=== PATIENT | female | born 1940 | race Caucasian/White ===

== ENCOUNTER 2017-06-10 20:52 | Inpatient (IN) | payer MEDICARE, OTHER ==
[~2017-06-10] VITALS: Ht 160 cm; Wt 89.8 kg
[2017-06-10] MEDS ORDERED: AMIO200T2 PO (22:02)
[2017-06-10] MEDS ORDERED: DOXA4TAB3 PO (22:02)
[2017-06-10] MEDS ORDERED: RANI150T8 PO (22:02)
[2017-06-10] MEDS ORDERED: FURO40TA5 PO (22:02)
[2017-06-10] MEDS ORDERED: RIVA20TA PO (22:02)
[2017-06-10] MEDS ORDERED: PRIM50TA PO (22:02)
[2017-06-10] MEDS ORDERED: NATE60TA4 PO (22:02)
[2017-06-10] MEDS ORDERED: AZIL1TAB2 PO (22:02)
[2017-06-10] MEDS ORDERED: SIMV40TA5 PO (22:02)
[2017-06-10] MEDS ORDERED: ZOLP10TA6 PO (22:02)
[2017-06-10] MEDS ORDERED: CARB1TAB19 PO (22:02)
[2017-06-10 22:05] LABS: BASOPHILS % (AUTO) 0.6 % (0.0-2.0); EOSINOPHILS # (AUTO) 0.1 K/uL (0.0-0.7); EOSINOPHILS % (AUTO) 1.8 % (0.0-7.0); HEMATOCRIT 29.4 % (31.2-41.9); HEMOGLOBIN 9.7 g/dL (10.9-14.3); LYMPHOCYTES # (AUTO) 1.3 K/uL (20.0-40.0); LYMPHOCYTES % (AUTO) 22.3 % (20.5-51.5); MEAN CORPUSCULAR HEMOGLOBIN 28.6 uug (24.7-32.8); MEAN CORPUSCULAR HGB CONC 33 g/dL (32.3-35.6); MEAN CORPUSCULAR VOLUME 86.6 fL (75.5-95.3); MONOCYTES # (AUTO) 0.5 K/uL (2.0-10.0); MONOCYTES % (AUTO) 8.7 % (0.0-11.0); NEUTROPHILS % (AUTO) 66.6 % (38.5-71.5); PLATELET COUNT (AUTO) 151 K/uL (179-408); WHITE BLOOD COUNT (AUTO) 6.1 K/uL (3.8-11.8)
[2017-06-10 22:27] LABS: CARBON DIOXIDE 30 mmol/L (21-32); CHLORIDE 107 mmol/L (98-107); GLUCOSE 116 mg/dL (74-106); POTASSIUM 4.3 mmol/L (3.5-5.1); UREA NITROGEN, BLOOD 26 mg/dL (7-18)
[2017-06-10 22:31] LABS: ALANINE AMINOTRANSFERASE 23 U/L (14-59); ALKALINE PHOSPHATASE 68 U/L (50-136); ASPARTATE AMINOTRANSFERASE 24 U/L (15-37); BILIRUBIN,DIRECT 0.1 mg/dL (0.0-0.2); BILIRUBIN,TOTAL 0.3 mg/dL (0.2-1.0); TOTAL PROTEIN, SERUM 7.2 g/dL (6.4-8.2)
--- NOTE | 2017-06-10 22:40 | NUR ---
PT IN BED. PT'S DAUGHTER AT BEDSIDE. BREATH SOUNDS EVEN AND UNLABORED. VSS. NO SIGNS OF DISTRESS WITNESSED BY NURSE OR EXPRESSED BY PT.
[2017-06-11 01:38] LABS: *BILIRUBIN,URIN NEGATIVE (NEGATIVE); *BLOOD, URINE Trace-intact (NEGATIVE); *CLARITY,URINE SLIGHTLY CLOUDY (CLEAR); *COLOR,URINE YELLOW (YELLOW); *KETONES,URINE NEGATIVE (NEGATIVE); *PROTEIN,URINE NEGATIVE (NEGATIVE); LEUKOCYTE ESTERASE ,URINE NEGATIVE (NEGATIVE); NITRITE, URINE NEGATIVE (NEGATIVE); PH,URINE 7.5 (5.0-8.0); UGLUCOSE NEGATIVE (NEGATIVE)
[2017-06-11 02:02] LABS: BACTERIA,URINE NONE SEEN /HPF (NONE SEEN); SQUAMOUS EPITHELIAL CELL,UR MODERATE /HPF (NONE SEEN); WBC,URINE 0-3 /HPF (0-3)
[2017-06-11] MEDS ORDERED: ACETAMINOPHEN 325 MG TABLET PO PRN (02:30)
[2017-06-11] MEDS ORDERED: MAGNESIUM HYDROXIDE 30 ML LIQUID UDC PO PRN (02:30)
[2017-06-11] MEDS ORDERED: Z GUARD REMEDY PASTE 57 GM TUBE TOP PRN (02:30)
[2017-06-11] MEDS ORDERED: ONDANSETRON 4 MG/2 ML VIAL IV PRN (02:30)
--- NOTE | 2017-06-11 02:30 | NUR ---
REPORT GIVEN TO DIEGO KING
[2017-06-11] MEDS ORDERED: ALBUTEROL SULFATE 2.5 MG/ 0.5 ML NEBU NEB PRN (02:45)
[2017-06-11] MEDS ORDERED: DEXTROSE 50% 50 ML DISP.SYRIN IV PRN (02:45)
[2017-06-11] MEDS ORDERED: hydrALAZINE HCL 25 MG TABLET PO PRN (02:45)
[2017-06-11 04:00] VITALS: BP 122/68
--- NOTE | 2017-06-11 04:15 | NUR ---
Pt. admitted to TELEMETRY, under care of Dr. BURGOS Belongs List completed
[2017-06-11] MEDS: CARBIDOPA/LEVODOPA 10-100MG TABLET PO SCH ×4 (05:00→17:01)
[2017-06-11] MEDS: SIMVASTATIN 40 MG TABLET PO SCH ×2 (05:00→20:57)
[2017-06-11] MEDS: PRIMIDONE 50 MG TABLET PO SCH ×2 (05:00→20:57)
[2017-06-11] MEDS: IV NS 1000 ML 1,000 ML IV PRN (05:03)
--- NOTE | 2017-06-11 07:00 | NUR ---
ADMITTED PT FROM ER TRANSLATION GIVEN BY RHONDA MARISCAL, PT WITH CHRONIC BACK PAIN AND LEG PAIN. WHEELCHAIR BOUND FROM HOME,SKIN INTACT EXCEPT A 0.5CM SLIT ON HER RIGHT GROIN,. NO DRAINAGE NOTED, SINUS RHYTHM BUT SOMETIMES GOES A-V PACED ON MONITOR, VSS,AFEBRILE, IVF STARTED. WILL CONTINUE TO MONITOR, DIAPER IN PLACE.
[2017-06-11] MEDS: BLOOD SUGAR DIAGNOSTIC 1 EACH STRIP VI SCH ×4 (07:08→20:57)
--- NOTE | 2017-06-11 08:00 | NUR ---
AWAKE ALERT, SYRIAN SPEAKING, REQUIRES MAXIMUM ASSIST WITH ADLS. SEVERE WEAKNESS NOTED BLE. CONTINUE WITH TELE OBSERVATION. SR ON MONITOR
[2017-06-11] MEDS: AMIODARONE HCL 200 MG TABLET PO SCH (08:31)
[2017-06-11] MEDS: FAMOTIDINE 20 MG TABLET PO SCH ×2 (08:31→20:57)
[2017-06-11] MEDS: DOXAZOSIN 2 MG TABLET PO SCH ×2 (08:31→17:01)
[2017-06-11] MEDS: FUROSEMIDE 40 MG TABLET PO SCH (08:31)
[2017-06-11] MEDS: Z GUARD REMEDY PASTE 57 GM TUBE TOP SCH ×2 (08:34→20:59)
[2017-06-11] MEDS: HYDROCODONE/APAP 5-325MG TABLET PO PRN (08:38)
[2017-06-11] MEDS ORDERED: LACTULOSE 20 G/30 ML LIQUID UDC PO ONE (11:15)
[2017-06-11] MEDS ORDERED: FLEET ENEMA 133 ML BOTTLE RC ONE (11:15)
[2017-06-11 11:51] VITALS: BP 114/52
--- NOTE | 2017-06-11 12:00 | NUR ---
SEEN BY HOSPITALIST WITH ORDER. SEE NOTES
[2017-06-11] MEDS: ASPIRIN EC 81 MG TABLET.DR PO SCH (12:21)
[2017-06-11 14:08] LABS: *OCCULT BLOOD STOOL NEGATIVE (NEGATIVE)
[2017-06-11 15:55] VITALS: BP 103/50
[2017-06-11] MEDS: RIVAROXABAN 10 MG TABLET PO SCH (17:02)
--- NOTE | 2017-06-11 17:26 | NUR ---
no ss of distress or pain requires max assist with adls. closely monitored
[2017-06-11 20:00] VITALS: BP 135/39
--- NOTE | 2017-06-11 20:00 | NUR ---
OBSERVED TO BE AWAKE AND ALERT. NO S/S OF DISTRESS NOTED AT THIS TIME. VITAL SIGNS WNL. BED IN LOW, LOCKED POSITION. BED ALARM ON. CALL LIGHT WITHIN REACH. WILL CONTINUE TO MONITOR.
[2017-06-11] MEDS: ZOLPIDEM 5 MG TABLET PO SCH (21:53)
[2017-06-12] MEDS: IV NS 1000 ML 1,000 ML IV PRN ×2 (01:05→14:19)
[2017-06-12 05:04] VITALS: BP 130/42
--- NOTE | 2017-06-12 05:59 | NUR ---
NO DISTRESS NOTED THROUGHOUT THE NIGHT. RUBIN CARE AND BACK CARE PROVIDED. REPOSITIONED. IVF RUNNING ORDERED. BED IN LOW, LOCKED POSITION. BED ALARM ON. CALL LIGHT WITHIN REACH.
[2017-06-12] MEDS: BLOOD SUGAR DIAGNOSTIC 1 EACH STRIP VI SCH ×4 (06:28→20:51)
--- NOTE | 2017-06-12 07:30 | NUR ---
Rec'd pt in bed, A&O x4. Prydeinig speaking only. No acute distress noted. Admitted for Anemia. No s/s of active bleeding noted at this time. Denies pain. On RA, paloma well. Will continue to monitor.
[2017-06-12 07:40] LABS: BASOPHILS % (AUTO) 0.7 % (0.0-2.0); EOSINOPHILS # (AUTO) 0.2 K/uL (0.0-0.7); EOSINOPHILS % (AUTO) 2.5 % (0.0-7.0); HEMATOCRIT 29.9 % (31.2-41.9); HEMOGLOBIN 9.9 g/dL (10.9-14.3); LYMPHOCYTES # (AUTO) 1.6 K/uL (20.0-40.0); MEAN CORPUSCULAR HEMOGLOBIN 28.6 uug (24.7-32.8); MEAN CORPUSCULAR HGB CONC 33 g/dL (32.3-35.6); MEAN CORPUSCULAR VOLUME 86.7 fL (75.5-95.3); MONOCYTES # (AUTO) 0.5 K/uL (2.0-10.0); MONOCYTES % (AUTO) 8.4 % (0.0-11.0); NEUTROPHILS # (AUTO) 3.7 K/uL (1.8-8.9); NEUTROPHILS % (AUTO) 61.4 % (38.5-71.5); PLATELET COUNT (AUTO) 148 K/uL (179-408); RED BLOOD CELL COUNT(AUTO) 3.44 MIL/uL (3.63-4.92); WHITE BLOOD COUNT (AUTO) 6.1 K/uL (3.8-11.8)
[2017-06-12 07:49] LABS: CARBON DIOXIDE 28 mmol/L (21-32); CHLORIDE 104 mmol/L (98-107); GLUCOSE 105 mg/dL (74-106); MAGNESIUM 1.9 mg/dL (1.8-2.4); PHOSPHOROUS 3.8 mg/dL (2.5-4.9); POTASSIUM 3.7 mmol/L (3.5-5.1); UREA NITROGEN, BLOOD 21 mg/dL (7-18)
[2017-06-12] MEDS: CARBIDOPA/LEVODOPA 10-100MG TABLET PO SCH ×3 (09:42→17:12)
[2017-06-12] MEDS: ASPIRIN EC 81 MG TABLET.DR PO SCH (09:42)
[2017-06-12] MEDS: FAMOTIDINE 20 MG TABLET PO SCH ×2 (09:42→20:52)
--- NOTE | 2017-06-12 10:30 | NUR ---
Spoke with RUTHANN Dorantes regarding pt's DBP of 42. Per Jayna, ok to give Amiodarone, Lasix, and Cardura.
[2017-06-12] MEDS: FUROSEMIDE 40 MG TABLET PO SCH (10:49)
[2017-06-12] MEDS: DOXAZOSIN 2 MG TABLET PO SCH ×2 (10:49→17:13)
[2017-06-12] MEDS: AMIODARONE HCL 200 MG TABLET PO SCH (10:49)
[2017-06-12] MEDS: Z GUARD REMEDY PASTE 57 GM TUBE TOP SCH ×2 (10:50→20:52)
--- NOTE | 2017-06-12 11:05 | NUR ---
Pt complaining of right knee pain. Per pt, she was using a topical cream for the pain at home. Spoke to Codey Dorantes DNP and obtained order for Jomar-persaud cream. New order noted and carried out. Pt made aware.
[2017-06-12] MEDS ORDERED: METHYL SALICYLATE/MENTHOL CREAM 28 GM TUBE TOP PRN (11:15)
[2017-06-12 11:30] VITALS: BP 115/38
[2017-06-12 15:11] VITALS: BP 100/39
[2017-06-12 17:10] VITALS: BP 119/51
[2017-06-12] MEDS: RIVAROXABAN 10 MG TABLET PO SCH (17:13)
[2017-06-12] MEDS ORDERED: BUPIVACAINE PF 0.5% 30 ML VIAL TP ONE (18:30)
[2017-06-12] MEDS ORDERED: LIDOCAINE HCL 1% 20 ML VIAL IJ PRN (18:30)
[2017-06-12] MEDS ORDERED: TRIAMCINOLONE ACETONIDE 40 MG/1 ML VIAL IM ONE (18:30)
[2017-06-12 20:15] VITALS: BP 121/52
[2017-06-12] MEDS: INSULIN REGULAR, HUMAN 300 UNIT/3 ML VIAL SQ PRN (20:51)
[2017-06-12] MEDS: SIMVASTATIN 40 MG TABLET PO SCH (20:52)
[2017-06-12] MEDS: PRIMIDONE 50 MG TABLET PO SCH (20:52)
[2017-06-12] MEDS: ZOLPIDEM 5 MG TABLET PO SCH (20:52)
--- NOTE | 2017-06-12 21:00 | NUR ---
Informed consent signed by daughter for procedure tomorrow. Pt aware of plan of care. No distress noted at this time. Will continue to monitor.
[2017-06-13] MEDS: IV NS 1000 ML 1,000 ML IV PRN ×2 (03:57→18:41)
[2017-06-13 04:21] VITALS: BP 116/53
[2017-06-13] MEDS: BLOOD SUGAR DIAGNOSTIC 1 EACH STRIP VI SCH ×4 (06:34→20:27)
--- NOTE | 2017-06-13 07:10 | NUR ---
Received report from overnight houseperson nurse, patient in bed asleep, reports pain in right knee and inability to move legs for a long time. Bed in low position, side rails up x2, bed alarm on.
[2017-06-13] MEDS: DOXAZOSIN 2 MG TABLET PO SCH ×2 (08:58→16:36)
[2017-06-13] MEDS: FAMOTIDINE 20 MG TABLET PO SCH ×2 (08:58→20:29)
[2017-06-13] MEDS: CARBIDOPA/LEVODOPA 10-100MG TABLET PO SCH ×3 (08:59→16:36)
[2017-06-13] MEDS: AMIODARONE HCL 200 MG TABLET PO SCH (08:59)
[2017-06-13] MEDS: ASPIRIN EC 81 MG TABLET.DR PO SCH (08:59)
[2017-06-13] MEDS: FUROSEMIDE 40 MG TABLET PO SCH (08:59)
[2017-06-13] MEDS: HYDROCODONE/APAP 5-325MG TABLET PO PRN ×2 (09:00→13:15)
[2017-06-13] MEDS ORDERED: BUPIVACAINE PF 0.5% 30 ML VIAL TP SCH (09:00)
[2017-06-13] MEDS ORDERED: TRIAMCINOLONE ACETONIDE 40 MG/1 ML VIAL IM SCH (09:00)
[2017-06-13] MEDS: Z GUARD REMEDY PASTE 57 GM TUBE TOP SCH ×2 (09:04→20:30)
[2017-06-13 09:55] LABS: BASOPHILS % (AUTO) 0.7 % (0.0-2.0); EOSINOPHILS # (AUTO) 0.1 K/uL (0.0-0.7); EOSINOPHILS % (AUTO) 1.4 % (0.0-7.0); HEMATOCRIT 30.4 % (31.2-41.9); LYMPHOCYTES # (AUTO) 1.5 K/uL (20.0-40.0); LYMPHOCYTES % (AUTO) 25.7 % (20.5-51.5); MEAN CORPUSCULAR HEMOGLOBIN 28.1 uug (24.7-32.8); MEAN CORPUSCULAR HGB CONC 33 g/dL (32.3-35.6); MEAN CORPUSCULAR VOLUME 85.9 fL (75.5-95.3); MONOCYTES # (AUTO) 0.5 K/uL (2.0-10.0); MONOCYTES % (AUTO) 8.4 % (0.0-11.0); NEUTROPHILS # (AUTO) 3.7 K/uL (1.8-8.9); NEUTROPHILS % (AUTO) 63.8 % (38.5-71.5); PLATELET COUNT (AUTO) 142 K/uL (179-408); RED BLOOD CELL COUNT(AUTO) 3.54 MIL/uL (3.63-4.92); WHITE BLOOD COUNT (AUTO) 5.8 K/uL (3.8-11.8)
[2017-06-13 10:12] LABS: CARBON DIOXIDE 28 mmol/L (21-32); CHLORIDE 103 mmol/L (98-107); GLUCOSE 127 mg/dL (74-106); MAGNESIUM 1.8 mg/dL (1.8-2.4); PHOSPHOROUS 3.9 mg/dL (2.5-4.9); POTASSIUM 3.8 mmol/L (3.5-5.1); UREA NITROGEN, BLOOD 24 mg/dL (7-18)
[2017-06-13 11:32] VITALS: BP 100/46
--- NOTE | 2017-06-13 12:30 | NUR ---
Patient had a procedure performed by Codey Wilkerson on right knee. Patient tolerated well.
[2017-06-13] MEDS: INSULIN REGULAR, HUMAN 300 UNIT/3 ML VIAL SQ PRN ×2 (12:31→20:29)
--- NOTE | 2017-06-13 13:06 | NUR ---
WOUND CARE CONSULT: RECEIVED REQUEST FROM NURSING STAFF TO SEE RT GROIN WOUND, PRESENT ON ADMISSION. PT STATES HAD SURGICAL PROCEDURE 5 YEARS AGO AND HAS WOUND TO RT GROIN. RECOMMENDATIONS MADE FOR WOUND CARE AND SKIN PROTECTION. DISCUSSED WITH NURSING STAFF. RECOMMEND SURGICAL FOLLOWUP. WILL SEE PRN. [place] IN AGREEMENT WITH PLAN OF CARE. Addendum: 06/13/17 at 1308 by TROY MURILLO RN Amended: Links added.
[2017-06-13 15:04] VITALS: BP 97/43
[2017-06-13] MEDS: RIVAROXABAN 10 MG TABLET PO SCH (18:44)
--- NOTE | 2017-06-13 19:17 | NUR ---
Patient has been cooperative with care. Patient experienced some pain in abdomen and right knee and was relieved with norco. Currently patient in bed, no distress noted, bed in low position, side rails up x2. bed alarm on.
--- NOTE | 2017-06-13 20:00 | NUR ---
RECEIVED PATIENT AWAKE IN BED. MALAGASY/MICRONESIAN SPEAKING. A/O X3, REQUIRES GREENHOUSE WORKER, BUT ABLE TO MAKE SIMPLE NEEDS KNOWN. DENIES PAIN. NO FACIAL GRIMACE NOTED. NO RESP. DISTRESS NOTED. IVF INFUSING WELL TO RIGHT FA #20 GAUGE. BED ALARM ON. CALL LIGHT IN REACH. ALL NEEDS ATTENDED. WILL CONTINUE TO MONITOR AND ASSESS.
[2017-06-13 20:14] VITALS: BP 100/43
[2017-06-13] MEDS: ZOLPIDEM 5 MG TABLET PO SCH (20:29)
[2017-06-13] MEDS: SIMVASTATIN 40 MG TABLET PO SCH (20:29)
[2017-06-13] MEDS: PRIMIDONE 50 MG TABLET PO SCH (20:29)
[2017-06-13] MEDS: BACITRACIN/POLYMYXIN B OINT 15 GM TUBE TOP SCH (20:30)
[2017-06-14 06:07] VITALS: BP 105/43
[2017-06-14] MEDS: BLOOD SUGAR DIAGNOSTIC 1 EACH STRIP VI SCH ×2 (06:31→11:51)
--- NOTE | 2017-06-14 06:44 | NUR ---
PATIENT AWAKE IN BED. REPOSITIONED TO SIDE FOR COMFORT. SLEPT AT INTERVALS. DENIES PAIN. BED ALARM ON. CALL LIGHT IN REACH. ALL NEEDS ATTENDED. WILL CONTINUE TO MONITOR.
--- NOTE | 2017-06-14 07:00 | NUR ---
RECEIVED REPORT FROM SUPERVISOR BONDING, PATIENT ON BED, NO ACUTE DISTRESS NOTED. ALERT AND ORIENTED X 3. BAHAMIAN SPEAKING BUT ABLE TO VERBALIZE NEEDS. IV ACCESS ON THE RIGHT FOREARM #20 RUNNING NS @ 75 CC/HR INFUSING WELL. NEEDS ASSIST WITH MEALS AND REPOSITIONING. NO COMPLAINTS OF PAIN AND DISCOMFORT. COMFORT MEASURES PROVIDED WILL CONTINUE TO MONITOR CLOSELY.
[2017-06-14] MEDS: INSULIN REGULAR, HUMAN 300 UNIT/3 ML VIAL SQ PRN ×2 (07:36→11:53)
[2017-06-14] MEDS: CARBIDOPA/LEVODOPA 10-100MG TABLET PO SCH ×2 (08:27→12:00)
[2017-06-14] MEDS: ASPIRIN EC 81 MG TABLET.DR PO SCH (08:27)
[2017-06-14] MEDS: FAMOTIDINE 20 MG TABLET PO SCH (08:27)
[2017-06-14] MEDS: FUROSEMIDE 40 MG TABLET PO SCH (08:27)
[2017-06-14] MEDS: AMIODARONE HCL 200 MG TABLET PO SCH (08:28)
[2017-06-14] MEDS: DOXAZOSIN 2 MG TABLET PO SCH (08:28)
[2017-06-14] MEDS: BACITRACIN/POLYMYXIN B OINT 15 GM TUBE TOP SCH (08:30)
[2017-06-14] MEDS: Z GUARD REMEDY PASTE 57 GM TUBE TOP SCH (08:31)
[2017-06-14] MEDS: IV NS 1000 ML 1,000 ML IV PRN (09:06)
[2017-06-14 11:10] VITALS: BP 94/36
--- NOTE | 2017-06-14 14:07 | NUR ---
right groin skin opening closed with skin glue using aseptic technique. well tolerated.
--- NOTE | 2017-06-14 14:08 | NUR ---
PATIENT DISCHARGED IN STABLE CONDITION TO [facility]. REPORT PREVIOUSLY GIVEN TO TAQUERIA CORTEZ. DISCHARGE PAPERS AND INSTRUCTIONS GIVEN AND EXPLAINED TO PATIENT. IV SITE REMOVED WELL TOLERATED. LEFT FACILITY VIA AMBULANCE ACCOMPANIED BY TWO EMT
== END 2017-06-14 14:10 | DRG 391 ==
LOC: ER 20:53 → TELE 06-11 03:56 → MED 06-11 14:14
PROVIDERS: ADMIT Internal Medicine; ATTEND Nurse Practitioner Acute Care
PROC: 0S9C3ZZ Drainage of Right Knee Joint, Percutaneous Approach (ICD-10-PCS; principal; 2017-06-13)
DX: K59.00 Constipation, unspecified (principal); I21.A1 Myocardial infarction type 2; D68.59 Other primary thrombophilia; E66.01 Morbid (severe) obesity due to excess calories; D69.6 Thrombocytopenia, unspecified; I11.0 Hypertensive heart disease with heart failure; I50.32 Chronic diastolic (congestive) heart failure; I48.91 Unspecified atrial fibrillation; M47.817 Spondylosis without myelopathy or radiculopathy, lumbosacral region; Z96.651 Presence of right artificial knee joint; Z95.0 Presence of cardiac pacemaker; Z95.2 Presence of prosthetic heart valve; Z79.01 Long term (current) use of anticoagulants; Z79.899 Other long term (current) drug therapy; K21.9 Gastro-esophageal reflux disease without esophagitis; K57.30 Diverticulosis of large intestine without perforation or abscess without bleeding; Z68.35 Body mass index [BMI] 35.0-35.9, adult; G20 Parkinson's disease; E11.9 Type 2 diabetes mellitus without complications; M25.461 Effusion, right knee; M51.36 Other intervertebral disc degeneration, lumbar region; S31.103A Unspecified open wound of abdominal wall, right lower quadrant without penetration into peritoneal cavity, initial encounter; X58.XXXA Exposure to other specified factors, initial encounter; Y92.009 Unspecified place in unspecified non-institutional (private) residence as the place of occurrence of the external cause; D63.8 Anemia in other chronic diseases classified elsewhere
CPT/HCPCS: 36415; 70030-TC; 71045; 72131; 83735; 84100; 84443; 85025; 85730; 87086; 93005; A4663; J1815; J2405; J3301; J3490; J7030